=== PATIENT | male | born 1990 | race Caucasian/White ===

== ENCOUNTER → 2020-05-22 08:14 | Outpatient (BNVA) | payer SELFPAY | PROVIDERS: PCP Family Medicine; Visit Provider Counselor Mental Health | DX: Z01.89 Encounter for other specified special examinations (principal) | CPT/HCPCS: 87491; 87591; 87661 ==

== ENCOUNTER → 2021-05-09 10:03 | Outpatient (BNVA) | payer OTHER, SELFPAY | PROVIDERS: PCP Family Medicine; Visit Provider Nurse Practitioner Psychiatric/Mental Health | DX: Z03.89 Encounter for observation for other suspected diseases and conditions ruled out (principal) | CPT/HCPCS: 80053; 80061; 83036 ==

== ENCOUNTER → 2021-12-18 09:24 | Outpatient (BNVA) | payer MEDICAID, SELFPAY | PROVIDERS: Family Provider Family Medicine; PCP Family Medicine; Visit Provider Nurse Practitioner Psychiatric/Mental Health | DX: F41.1 Generalized anxiety disorder (principal); Z79.899 Other long term (current) drug therapy | CPT/HCPCS: 80061; 83036 ==

== ENCOUNTER → 2022-01-28 14:01 | Outpatient (BNVA) | payer MEDICAID, SELFPAY ==
[2022-01-01 09:32] VITALS: BP 135/92; BMI 69.6
== END ==
PROVIDERS: Family Provider Family Medicine; Visit Provider Family Medicine
DX: F33.1 Major depressive disorder, recurrent, moderate (principal); F41.1 Generalized anxiety disorder; E66.9 Obesity, unspecified; I10 Essential (primary) hypertension; E78.2 Mixed hyperlipidemia; R73.03 Prediabetes
CPT/HCPCS: 80053; 84443; 85025

== ENCOUNTER → 2022-10-27 14:12 | Outpatient (BNVA) | payer OTHER, SELFPAY ==
[2022-10-07 07:19] VITALS: BP 135/92; BMI 69.6
== END ==
PROVIDERS: Family Provider Family Medicine; PCP Family Medicine; Visit Provider Psychiatry & Neurology Neurology
DX: Z79.899 Other long term (current) drug therapy (principal)
CPT/HCPCS: 80053; 80061; 83036

== ENCOUNTER → 2023-01-23 13:55 | Outpatient (BNVA) | payer MEDICAID, SELFPAY ==
[2022-12-31 15:18] VITALS: BP 150/88; BMI 70.7
== END ==
PROVIDERS: Family Provider Family Medicine; PCP Family Medicine; Visit Provider Registered Nurse Neonatal Intensive Care
DX: R05.9 Cough, unspecified (principal); Z20.822 Contact with and (suspected) exposure to COVID-19
CPT/HCPCS: 87426

== ENCOUNTER 2023-07-18 21:42 | Emergency (ER) | payer MEDICAID, SELFPAY ==
[2023-07-14 08:05] VITALS: BP 150/88; BMI 70.7
[2023-07-18 22:09] VITALS: BP 162/109; PULSE 79; RESP 20; TEMP 36.8; O2SAT 97; BMI 68.3
--- NOTE | 2023-07-18 23:48 | ED_ITS ---
HPI - Dental/Oral General: Chief complaint: Dental/Oral Stated complaint: Mouth/Oral pain Time Seen by Provider: 07/18/23 23:40 History of Present Illness: 33-year-old male patient comes in with f rontal incisor dental pain. Patient has no obvious swelling noted. Patient does have dental caries noted. 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 Social phobia Family History Other CAD (coronary artery disease) Hypertension Psychiatric illness Social History (Updated 12/08/22 @ 11:05 by Ai Garcia LPN) Smoking and tobacco/nicotine status: never used tobacco/nicotine Second hand smoke exposure: No Alcohol intake: never Substance/Drug Use: never Adopted: No Caregiver/support person: No Lives independently: Yes Household members: significant other Housing: Apartment Marital status: Life Partner Number of children: 0 Number of grandchildren: 0 Highest education level completed: Some College, No Degree service: No Current occupational status: disabled Current occupational exposures/hazards: No Pets and animals: Yes Pets & animals: cat(s) Leisure activites: art, games and other Leisure activities details: Watch U- tube, drawing, pokemon, playing with cats Sexually active: Yes Do you think of yourself as: Straight/Heterosexual Current gender identity: Male Margie/Buddhism: Uatsdin Special margie needs: No Agree to transfusion: Yes Physical Exam Const: COMMON NORMALS: alert HENMT: COMMON NORMALS: normocephalic HEAD & SCALP: normocephalic TEETH & GINGIVA: Yes other (Multiple dental caries fair dentition) Neck/C-Spine: COMMON NORMALS: full ROM Resp: COMMON NORMALS: normal respiratory effort Cardio: COMMON NORMALS: regular rate RATE: regular rate Extremity: COMMON NORMALS: normal to inspection Neuro: SENSORIUM/ORIENTATION: Yes alert Skin: COMMON NORMALS: turgor normal GENERAL SKIN EXAM: turgor normal Course Vital Signs: Vital signs: Vital Signs Temperature 98.3 F 07/18/23 22:09 Pulse Rate 79 07/18/23 22:09 Respiratory Rate 20 H 07/18/23 22:09 Blood Pressure 162/109 07/18/23 22:09 Pulse Oximetry 97 07/18/23 22:09 Oxygen Delivery Me thod Room Air 07/18/23 22:09 MDM - Dental/Oral Medical Decision Making 33-year-old male patient comes in today for complaints of dental pain. On exam patient has multiple dental caries but with no signs of severe gingival erythema or swelling. Patient does have dental tenderness to the right frontal incisor. Patient has decay to the tooth. Differential diagnosis includes but not limited to dental abscess, dental caries, dental pain. Will start patient on antibiotics and give him some hydrocodone to help with his pain. Patient was recommended to follow-up with primary care and primary dentist for definitive care. Patient reported understanding and agreed to plan. No radiology studies performed this visit Discharge Plan Discharge Patient Disposition: Home Clinical Impression: Dental abscess Condition: Stable Prescriptions: New amoxicillin-pot clavulanate 875-125 mg tablet 1 tab PO Q8H Qty: 21 0RF hydrocodone-acetaminophen 5-325 mg tablet 1 tab PO Q8H PRN (Reason: pain (scale score 7-10)) Qty: 7 0RF No Action ibuprofen 200 mg tablet 400 mg PO Q6H PRN cetirizine [Zyrtec] 10 mg tablet 10 mg PO DAILY lisinopril 10 mg tablet 10 mg PO DAILY Qty: 90 2RF hydroxyzine pamoate [Vistaril] 25 mg capsule 25 mg PO BID PRN (Reason: anxiety) Qty: 180 1RF Rx Instructions: Take one capsule twice per day as needed for anxiety propranolol 10 mg tablet 10 mg PO TID Qty: 270 1RF Rx Instructions: Take one tablet three times per day citalopram [Celexa] 40 mg tablet 40 mg PO .morning Qty: 90 2RF Rx Instructions: Take one tablet every morning aripiprazole [Abilify] 2 mg tablet 2 mg PO .bedtime Qty: 90 2RF Rx Instructions: Take one tablet at bedtime Discharge Orders: Discharge ED (Routine); Ordered 07/18/23 Ordered By: Ha Wiggins Referrals: Vinny Padron DO [Primary Care Provider] - Spencer Forman MD [Family Provider] - Patient Instructions: Opioid Safety, Pain Management Coding Level of Care Code ED Horticulture Professor for Yury Uribe
[2023-07-19] MEDS: HYDROcodone-acetaminophen 7.5-325 mg Tablet 1 TAB PO
[2023-07-19] MEDS: amoxicillin-clav 875-125 mg Tablet 1 TAB PO
== END 2023-07-19 00:01 | disposition home or self-care (01) ==
PROVIDERS: Emergency Provider Nurse Practitioner Family; Family Provider Family Medicine; PCP Family Medicine
DX: K04.7 Periapical abscess without sinus (principal)
CPT/HCPCS: 99283

== ENCOUNTER → 2023-10-26 10:05 | Outpatient (BNVA) | payer OTHER, SELFPAY ==
[2023-10-21 08:04] VITALS: BP 150/88; BMI 70.7
== END ==
PROVIDERS: Family Provider Family Medicine; PCP Family Medicine; Visit Provider Nurse Practitioner Psychiatric/Mental Health
DX: Z79.899 Other long term (current) drug therapy (principal); Z63.4 Disappearance and death of family member; F33.1 Major depressive disorder, recurrent, moderate; F60.1 Schizoid personality disorder; F60.5 Obsessive-compulsive personality disorder; F41.1 Generalized anxiety disorder; F40.10 Social phobia, unspecified
CPT/HCPCS: 80053; 80061; 83036

== ENCOUNTER 2024-02-09 20:00 | Outpatient (CLI) | payer OTHER, SELFPAY ==
[2023-10-27 12:17] VITALS: BP 150/88; BMI 70.7
[2023-11-17 10:41] VITALS: BP 122/76; BMI 74.5
== END 2024-02-09 20:01 | disposition home or self-care (01) ==
LOC: SLEEP 23:48
PROVIDERS: Family Provider Family Medicine; PCP Family Medicine; Visit Provider Family Medicine
DX: G47.33 Obstructive sleep apnea (adult) (pediatric) (principal); Z99.89 Dependence on other enabling machines and devices
CPT/HCPCS: 95810

== ENCOUNTER 2024-05-21 15:26 | Emergency (ER) | payer MEDICAID, SELFPAY ==
[2024-04-10 09:44] VITALS: BP 122/76; BMI 74.5
[2024-05-21 15:27] VITALS: BP 157/97; PULSE 90; RESP 26; TEMP 36.7; O2SAT 94; BMI 79.1
--- NOTE | 2024-05-21 15:38 | USR_ITS ---
PROCEDURE INFORMATION: Exam: US Duplex Right Lower Extremity Veins, Limited Exam date and time: 05/21/2024 4:09 PM Age: 34 years old Clinical indication: Pain; Leg, lower; Right; Additional info: Leg pain TECHNIQUE: Imaging protocol: Real-time duplex ultrasound of the right extremity with 2-D jernigan scale, color Doppler flow and spectral waveform analysis including responses to compression and other maneuvers (when performed) with image documentation. Limited exam was focused on the right lower extremity veins. COMPARISON: No relevant prior studies available. FINDINGS: Right deep veins: Unremarkable. The common femoral, femoral, proximal profunda femoral and popliteal veins are patent without thrombus. Normal Doppler waveforms. Normal compressibility and/or augmentation response. Superficial veins: Greater saphenous vein at the saphenofemoral junction is patent without thrombus. Soft tissues: Unremarkable. US/[place] [id number] IMPRESSION: No evidence of deep vein thrombosis.
[2024-05-21 15:45] VITALS: BP 144/83; PULSE 88; RESP 18; O2SAT 97
--- NOTE | 2024-05-21 15:49 | W.ED.EXTPRO ---
HPI - Extremity Problem General: Chief complaint: Extremity Problem,Nontraumatic Stated complaint: rt leg pain Time Seen by Provider: 05/21/24 15:29 Source: patient Mode of arrival: ambulatory Limitations: no limitations History of Present Illness: 34-year-old male states he has been having right leg pain for about a week. States it has been a sharp pain in his right leg states its much worse with walking sent here to rule out a blood clot denies any fever denies any rash. Associated symptoms: Deny chest pain, fever(s) or rash Related Data Home Medications Medication Instructions Recorded Confirmed ibuprofen 200 mg tablet 400 mg PO Q6H PRN Pain 07/03/19 05/21/24 cetirizine 10 mg tablet 10 mg PO DAILY 05/21/24 05/21/24 famotidine 20 mg tablet 20 mg PO DAILY 05/21/24 05/21/24 lisinopril 10 mg tablet 10 mg PO DAILY 05/21/24 05/21/24 Previous Rx's Medication Instructions Recorded aripiprazole 2 mg tablet (Abilify) 2 mg PO .bedtime #90 tabs 10/26/23 citalopram 40 mg tablet (Celexa) 40 mg PO .morning #90 tabs 10/26/23 hydroxyzine pamoate 25 mg capsule 25 mg PO BID PRN anxiety #180 caps 10/26/23 (Vistaril) propranolol 10 mg tablet 10 mg PO TID #270 tabs 10/26/23 metformin 500 mg tablet 500 mg PO BIDWMEAL #60 tabs 12/21/23 pravastatin 10 mg tablet 10 mg PO DAILY #30 tabs 12/21/23 Allergies Allergy/AdvReac Type Severity Reaction Status Date / Time No Known Allergies Allergy Verified 05/21/24 15:32 Review of Systems Const: Denies: fever(s), chills, body aches or change in appetite ENMT: Denies: throat pain or dental pain Card: Denies: chest pain Resp: Denies: dyspnea GI: Denies: abdominal pain, nausea, vomiting or diarrhea Musc: Reports: extremity pain; Denies: neck pain or back pain Skin/Breast: Denies: rash Neuro: Denies: headache(s) PFSH ED PFSH: Medical History Bereavement Sudden loss of mother 09/05/21 Major depressive disorder, recurrent episode, moderate with anxious distress Schizoid personality disorder Generalized anxiety disorder Social phobia Obsessive-compulsive personality disorder Family History Other CAD (coronary artery disease) Hypertension Psychiatric illness Social History Smoking and tobacco/nicotine status: never used tobacco/nicotine Second hand smoke exposure: No Alcohol intake: never Substance/Drug Use: never Adopted: No Caregiver/support person: No Lives independently: Yes Household members: significant other Housing: Apartment Marital status: Life Partner Number of children: 0 Number of grandchildren: 0 Highest education level completed: Some College, No Degree service: No Current occupational status: disabled Current occupational exposures/hazards: No Pets and animals: Yes (3 indoor cats) Pets & animals: cat(s) Leisure activites: art, games and other Leisure activities details: Watch U-tube, drawing, pokemon, playing with cats Sexually active: Yes How many partners: 1 Are you practicing safe sex: No Do you think of yourself as: Straight/Heterosexual Current gender identity: Male Margie/Druze: Lutheran Special margie needs: No Agree to transfusion: Yes Physical Exam Const: COMMON NORMALS: no acute distress, patient oriented x3 and healthy appearing HENMT: COMMON NORMALS: normocephalic and atraumatic HEAD & SCALP: normocephalic and atraumatic Eye: COMMON NORMALS: conjunctivae normal CONJUNCTIVA: Yes conjunctivae normal Neck/C-Spine: COMMON NORMALS: full ROM and supple Chest: COMMONS NORMALS: normal inspection of the chest Resp: COMMON NORMALS: normal respiratory effort Cardio: COMMON NORMALS: regular rate RATE: regular rate Extremity: COMMON NORMALS: normal to inspection and full ROM NARRATIVE EXTREMITY EXAM: Tenderness noted along right leg no obvious deformities no swelling distal pulses intact Neuro: COMMON NORMALS: patient oriented x3, moves all extremities and no focal motor deficits Psych: COMMON NORMALS: mental status grossly normal, Normal thought process present and cooperative THOUGHT PROCESS: Normal thought process present Skin: COMMON NORMALS: no rashes or lesions noted and no wounds GENERAL SKIN EXAM: no rashes or lesions noted Course Vital Signs: Vital signs: Vital Signs Temperature 98.1 F 05/21/24 15:27 Pulse Rate 88 05/21/24 15:45 Respiratory Rate 18 05/21/24 15:45 Blood Pressure 144/83 05/21/24 15:45 Pulse Oximetry 97 05/21/24 15:45 Oxygen Delivery Me thod Room Air 05/21/24 15:27 MDM - Extremity (Nontraumatic) Medical Decision Making Patient presents here with right leg pain likely muscular in nature exam is benign ultrasound showed no DVT stable for discharge follow-up with PCP return if worsening. Medical Records I reviewed the patient's medical records. All radiology interpretation(s) finalized by discharge Discharge Plan Discharge Patient Disposition: Home Clinical Impression: Pain in right leg Condition: Stable Prescriptions: No Action ibuprofen 200 mg tablet 400 mg PO Q6H PRN (Reason: Pain) metformin 500 mg tablet 500 mg PO BIDWMEAL Qty: 60 5RF pravastatin 10 mg tablet 10 mg PO DAILY Qty: 30 5RF aripiprazole [Abilify] 2 mg tablet 2 mg PO .bedtime Qty: 90 2RF Rx Instructions: Take one tablet at bedtime citalopram [Celexa] 40 mg tablet 40 mg PO .morning Qty: 90 2RF Rx Instructions: Take one tablet every morning hydroxyzine pamoate [Vistaril] 25 mg capsule 25 mg PO BID PRN (Reason: anxiety) Qty: 180 1RF Rx Instructions: Take one capsule twice per day as needed for anxiety propranolol 10 mg tablet 10 mg PO TID Qty: 270 2RF Rx Instructions: Take one tablet three times per day cetirizine 10 mg tablet 10 mg PO DAILY famotidine 20 mg tablet 20 mg PO DAILY Rx Instructions: take ONE tablet BY MOUTH daily lisinopril 10 mg tablet 10 mg PO DAILY Rx Instructions: TAKE 1 TABLET BY MOUTH EVERY DAY Discharge Orders: Discharge ED (Routine); Ordered 05/21/24 Ordered By: Brenda Linda Referrals: Vinny Padron DO [Primary Care Provider] - Spencer Forman MD [Family Provider] - Discharge Diet: Advance as tolerated Discharge Activity: Resume usual activity Patient Instructions: Leg Pain (ED) Coding Level of Care Code ED Sports Management Internship for Yury Uribe
[2024-05-21 16:32] VITALS: BP 141/79; PULSE 89; RESP 18; O2SAT 99
== END 2024-05-21 16:33 | disposition home or self-care (01) ==
PROVIDERS: Emergency Provider Emergency Medicine; Family Provider Family Medicine; PCP Family Medicine
DX: M79.604 Pain in right leg (principal); Z79.84 Long term (current) use of oral hypoglycemic drugs
CPT/HCPCS: 93971; 99284

== ENCOUNTER → 2024-06-29 14:02 | Outpatient (BNVA) | payer MEDICAID, SELFPAY ==
[2024-04-10 09:44] VITALS: BP 122/76; BMI 74.5
== END ==
PROVIDERS: Family Provider Family Medicine; PCP Family Medicine; Visit Provider Family Medicine
DX: E11.9 Type 2 diabetes mellitus without complications (principal)
CPT/HCPCS: 80053; 83036

== ENCOUNTER 2024-10-05 20:00 | Outpatient (CLI) | payer MEDICAID, SELFPAY ==
[2024-04-10 09:44] VITALS: BP 122/76; BMI 74.5
== END 2024-10-05 20:01 | disposition home or self-care (01) ==
LOC: SLEEP 23:33
PROVIDERS: PCP Family Medicine; Visit Provider Family Medicine
DX: G47.33 Obstructive sleep apnea (adult) (pediatric) (principal)
CPT/HCPCS: 95811

== ENCOUNTER → 2024-12-12 10:23 | Outpatient (BNVA) | payer OTHER, SELFPAY ==
[2024-04-10 09:44] VITALS: BP 122/76; BMI 74.5
== END ==
PROVIDERS: PCP Family Medicine; Visit Provider Nurse Practitioner Psychiatric/Mental Health
DX: F41.1 Generalized anxiety disorder (principal); F33.1 Major depressive disorder, recurrent, moderate; Z79.899 Other long term (current) drug therapy
CPT/HCPCS: 80061; 83036

== ENCOUNTER → 2025-04-27 11:28 | Outpatient (BNVA) | payer MEDICAID, SELFPAY ==
[2025-01-01 14:19] VITALS: BP 135/89; BMI 78.3
== END ==
PROVIDERS: PCP Family Medicine; Visit Provider Family Medicine
DX: R73.03 Prediabetes (principal)
CPT/HCPCS: 80053; 83036; 85025

== ENCOUNTER 2025-05-18 21:25 | Emergency (ER) | payer MEDICAID, SELFPAY ==
[2025-01-01 14:19] VITALS: BP 135/89; BMI 78.3
[2025-05-18 21:40] VITALS: BP 136/90; PULSE 85; RESP 16; TEMP 36.8; O2SAT 98; BMI 75.2
--- NOTE | 2025-05-18 22:13 | ED_ITS ---
HPI - Abdominal Pain 2 General: Chief Complaint: Abdominal Pain Stated Complaint: V/N,abd pain,diarrhea Time Seen by Provider: 05/18/25 21:32 History of Present Illness: 35-year-old male presents emergency room complaining of abdominal discomfort and what he describes as stomach issues for the last several days. He had some vomiting and diarrhea with it. He denies any hematochezia melena hematemesis coffee-ground emesis denies dysuria urgency or frequency at times whenever he eats it makes him throw up other times he has no symptoms at all he has several episodes of the eructations recently. Patient is diabetic he is on a GLP-1 as well as on metformin. Associated Symptoms: Reports nausea and vomiting; Denies chills, dysuria and fever(s) Related Data Home Medications ?Medication ?Instructions ?Recorded ?Confirmed ibuprofen 200 mg tablet 400 mg PO Q6H PRN Pain 07/0305/04/25 Previous Rx's ?Medication ?Instructions ?Recorded pravastatin 10 mg tablet 10 mg PO DAILY #90 tabs 11/15 aripiprazole 2 mg tablet (Abilify) 2 mg PO .3 pm #90 t abs 09/28/24 BIPAP 22-18 cm mmHg setting with #1 ea 10/11/24 mask, tubing and supplies cetirizine 10 mg tablet 10 mg PO DAILY #90 tabs 10/22 11/15 famotidine 20 mg tablet 20 mg PO DAILY #90 tabs 11/22 07/18 citalopram 40 mg tablet (Celexa) 40 mg PO .morning #90 tabs 12/27/24 propranolol 10 mg tablet 10 mg PO TID #270 tabs 12/27 lisinopril 20 mg tablet 20 mg PO DAILY #90 tabs 12/22 01/15 metformin 500 mg tablet See Rx Instructions .Route 0 01/26/25 .COMPLEX #60 tabs ketoconazole 1 % shampoo 1 applic topical Q3D #200 mL 03/23/25 semaglutide 1 mg/dose (4 mg/3 mL) 1 mg (0.75 mL) SUBCU T .qweekly 3 04/27/25 subcutaneous pen injector months #3 mL hydroxyzine pamoate 25 mg capsule 25 mg PO BID PRN anx iety #60 caps 05/04/25 (Vistaril) Allergies Allergy/AdvReac Type Severity Reaction Status Date / Time No Known Allergies Allergy Verified 05/18/25 21:45 Review of Systems 2 Const: Denies: fever(s) or chills Card: Denies: chest pain Resp: Denies: dyspnea GI: Reports: abdominal pain, nausea and vomiting : Denies: dysuria, urinary frequency or urinary urgency Musc: Denies: neck pain or back pain Skin/Breast: Denies: rash PFSH ED 2 PFSH: Medical History GUMARO (obstructive sleep apnea) Essential hypertension Mixed dyslipidemia GERD without esophagitis BMI 70 and over, adult Bereavement Sudden loss of mother 09/05/21 Major depressive disorder, recurrent episode, moderate with anxious distress Schizoid personality disorder Generalized anxiety disorder Social phobia Obsessive-compulsive personality disorder Surgical History History of appendectomy Family History Other CAD (coronary artery disease) Hypertension Psychiatric illness Social History Smoking and tobacco/nicotine status: never used tobacco/nicotine Second hand smoke exposure: No Alcohol intake: never Substance/Drug Use: never Adopted: No Caregiver/support person: No Lives independently: No (Lives with partner) Household members: significant other Housing: Apartment Marital status: Life Partner Number of children: 0 Number of grandchildren: 0 Highest education level completed: Some College, No Degree service: No Current occupational status: employed and disabled Current occupation: [employer] Current occupational exposures/hazards: No Pets and animals: Yes (3 indoor cats) Pets & animals: cat(s) Leisure activites: art, games, fishing and other Leisure activities details: Watch U-tube, drawing, pokemon, playing with cats Sexually active: No Do you think of yourself as: Straight/Heterosexual Current gender identity: Male Margie/Baptism: Mu-Ism Special margie needs: No Agree to transfusion: Yes Physical Exam 2 Const: COMMON NORMALS: no acute distress GENERAL APPEARANCE: cooperative and comfortable ORIENTATION/CONSCIOUSNESS: Yes awake, Yes oriented to person, Yes oriented to place and Yes oriented to time HENMT: COMMON NORMALS: normocephalic, atraumatic and hearing grossly normal bilaterally HEAD & SCALP: normocephalic and atraumatic Resp: COMMON NORMALS: normal respiratory effort, No retractions, No use of accessory muscles and clear to auscultation bilaterally AUSCULTATION: clear to auscultation bilaterally Cardio: COMMON NORMALS: regular rate, regular rhythm and No murmurs present (Cardio) RATE: regular rate RHYTHM: regular rhythm GI: COMMON NORMALS: Soft to palpation and No hepatosplenomegaly present A USCULTATION: Yes normoactive bowel sounds PALPATION: Yes Soft to palpation, No Tenderness to palpation present (GI), No Guarding due to palpation present (GI) and Yes No hepatosplenomegaly present Extremity: COMMON NORMALS: normal to inspection, capillary refill normal, no clubbing, cyanosis or edema, no calf tenderness and no pedal edema Neuro: SENSORIUM/ORIENTATION: Yes oriented to person, Yes oriented to place and Yes oriented to time Skin: COMMON NORMALS: no rashes or lesions noted GENERAL SKIN EXAM: no rashes or lesions noted Course 2 Vital Signs: Vital signs: Vital Signs Temperature 98.2 F 05/18/25 21:40 Pulse Rate 96 05/19/25 01:03 Respiratory Rate 16 05/18/25 21:40 Blood Pressure 167/118 05/19/25 01:03 Pulse Oximetry 98 05/19/25 01:03 Oxygen Delivery Me thod Room Air 05/19/25 00:44 MDM - Abdominal Pain Medical Decision Making Medical decision making Social determinants: None I reviewed the patient's medical record. I reviewed the patient's current home meds. Alternate historians: None Differential diagnosis: Gastric ulcer, gastroparesis, bowel obstruction acute cholecystitis Lab Review: No leukocytosis hemoglobin stable. Chemistry showed normal electrolytes normal anion gap BUN and creatinine are also normal.Mild elevation of AST and ALT but this has been chronic and is actually trending better. Bilirubin normal Imaging: None Assessment of risk Level of risk: Low Hospitalization considerations: No indication for hospitalization Reexamination: Stable Assessment and plan: Patient has generalized abdominal discomfort at various times he will notice it when he eats he gets sick and throws up he feels bloated. He does not really get any biliary colic like symptoms. His bilirubin has been elevated in the past so actually try to eat better today suspect he had gastroparesis he is on metformin and Ozempic. Either of these things could cause stomach upset. Recommend that he hold these follow-up with his primary care doctor he may benefit from gastric emptying study and/or EGD these can be done as an outpatient. Return if he has further problems. Lab Data 05/18/25 22:41 05/18/25 22:41 Labs/Radiology: Laboratory Results WBC 8.23 10^3/uL (3.29-11.43) 05/18/25 22:41 RBC 4.85 10^6/uL (3.85-5.65) 05/18/25 22:41 Hgb 13.60 g/dL (11.27-16.99) 05/18/25 22:41 Hct 43.3 % (37-53) 05/18/25 22:41 MCV 89.3 fl (82-101) 05/18/25 22:41 MCH 28.0 pg (27-33) 05/18/25 22:41 MCHC 31.4 g/dL (30-55) 05/18/25 22:41 RDW 14.6 % (12.1-15.1) 05/18/25 22:41 Plt Count 235 10^3/cmm (157-399) 05/18/25 22:41 MPV 11.3 fL (7.4-10.4) H 05/18/25 22:41 Neut % (Auto) 46.1 % 05/18/25 22:41 Lymph % (Auto) 39.1 % 05/18/25 22:41 [place] % (Auto) 7.2 % 05/18/25 22:41 Eos % (Auto) 6.7 % 05/18/25 22:41 Baso % (Auto) 0.4 % 05/18/25 22:41 Neut # (Auto) 3.80 10^3/uL (1.8-7.7) 05/18/25 22:41 Lymph # (Auto) 3.2 10^3/uL (0.8-4.8) 05/18/25 22:41 [place] # (Auto) 0.6 10^3/uL (0.2-0.9) 05/18/25 22:41 Eos # (Auto) 0.6 10^3/uL (0.0-0.8) 05/18/25 22:41 Baso # (Auto) 0.0 10^3/uL (0.0-0.1) 05/18/25 22:41 Nucleated RBC % (auto) 0 % 05/18/25 22:41 Nucleated RBCs # 0.0 /100WBC 05/18/25 22:41 Sodium 138 mmol/L (136-145) 05/18/25 22:41 Potassium 4.2 mmol/L (3.5-5.1) 05/18/25 22:41 Chloride 100 mmol/L (98-107) 05/18/25 22:41 Carbon Dioxide 27 mmol/L (22-29) 05/18/25 22:41 Anion Gap 15.2 (5-19) 05/18/25 22:41 BUN 16 mg/dL (6-20) 05/18/25 22:41 Creatinine 1.0 mg/dL (0.7-1.2) 05/18/25 22:41 GFR Calculation 86.1 mL/min (90-130) L 05/18/25 22:41 Glucose 139 mg/dL (65-115) H 05/18/25 22:41 Calculated Osmolality 289 mOsm/kg (285-295) 05/18/25 22:41 Calcium 9.1 mg/dL (8.5-10.5) 05/18/25 22:41 Total Bilirubin 0.4 mg/dL (0.15-1.2) 05/18/25 22:41 AST 33 U/L (0-40) 05/18/25 22:41 ALT 54 U/L (0-41) H 05/18/25 22:41 Alkaline Phosphatase 38 U/L (40-130) L 05/18/25 22:41 Total Protein 7.5 g/dL (6.6-8.7) 05/18/25 22:41 Albumin 4.3 g/dL (3.5-5.2) 05/18/25 22:41 Globulin 3.2 g/dL (1.3-4.6) 05/18/25 22:41 Lipase 57 U/L (13-60) 05/18/25 22:41 Urine Color Yellow (Yellow) 05/18/25 22:13 Urine Appearance Clear (CLEAR) 05/18/25 22:13 Urine pH 5.5 (5-7) 05/18/25 22:13 Ur Specific [place] 1.026 (1.005-1.030) 05/18/25 22:13 Urine Protein Trace (Negative) A 05/18/25 22:13 Urine Glucose (UA) Negative (Normal) 05/18/25 22:13 Urine Ketones Trace (Negative) 05/18/25 22:13 Urine Blood Negative (Negative) 05/18/25 22:13 Urine Nitrate Negative (Negative) 05/18/25 22:13 Urine Bilirubin Negative (Negative) 05/18/25 22:13 Urine Urobilinogen 1.0 mg/dL (Negative) 05/18/25 22:13 Ur Leukocyte Esterase Negative (Negative) 05/18/25 22:13 Urine RBC 0-2 /hpf (0-2) 05/18/25 22:13 Urine WBC 0-5 /hpf (0-5) 05/18/25 22:13 Ur Squamous Epith Cells 0-5 /hpf (0-5) 05/18/25 22:13 Amorphous Sediment Not Reportable 05/18/25 22:13 Urine Bacteria None seen /hpf (NONE) 05/18/25 22:13 Hyaline Casts 2.05 /lpf 05/18/25 22:13 No radiology studies performed this visit Discharge Plan Discharge Patient Disposition: Home Clinical Impression: Gastroparesis, Medication side effects Condition: Stable Prescriptions: No Action ibuprofen 200 mg tablet 400 mg PO Q6H PRN (Reason: Pain) pravastatin 10 mg tablet 10 mg PO DAILY Qty: 90 1RF aripiprazole [Abilify] 2 mg tablet 2 mg PO .3 pm Qty: 90 2RF Rx Instructions: Take one tablet at 3 pm citalopram [Celexa] 40 mg tablet 40 mg PO .morning Qty: 90 2RF Rx Instructions: Take one tablet every morning propranolol 10 mg tablet 10 mg PO TID Qty: 270 2RF Rx Instructions: Take one tablet three times per day ketoconazole 1 % shampoo 1 applic topical Q3D Qty: 200 2RF hydroxyzine pamoate [Vistaril] 25 mg capsule 25 mg PO BID PRN (Reason: anxiety) Qty: 60 3RF Rx Instructions: May take one capsule twice per day as needed for anxiety semaglutide 1 mg/dose (4 mg/3 mL) pen injector 1 mg SUBCUT .qweekly 90 Days Qty: 3 3RF Rx Instructions: 0.5mg x 4 weeks (DME) BIPAP 22-18 cm mmHg setting with mask, tubing and supplies See Rx Instructions .ROUTE .MEDSUPPLY Qty: 1 0RF Rx Instructions: As directed cetirizine 10 mg tablet 10 mg PO DAILY Qty: 90 1RF famotidine 20 mg tablet 20 mg PO DAILY Qty: 90 1RF lisinopril 20 mg tablet 20 mg PO DAILY Qty: 90 1RF metformin 500 mg tablet See Rx Instructions .ROUTE .COMPLEX Qty: 60 5RF Dose Instruction: TAKE 1 TABLET BY MOUTH TWICE DAILY with meals Rx Instructions: TAKE 1 TABLET BY MOUTH TWICE DAILY with meals Discharge Orders: Discharge ED (Routine); Ordered 05/18/25 Ordered By: Amandeep Carrillo Referrals: John Hansen MD [Primary Care Provider, Family Practice] Patient Instructions: Abdominal Pain (ED), Opioid Safety, Pain Management, Patient Portal & Quinn Instructions Activity Restrictions/Additional Instructions: Thank you for choosing [facility] for your healthcare needs today. It is very important that you follow up as instructed or that you return to the Emergency Department should you have concerns or if your condition changes or worsens in any way. Emergency department visits are focused on emergent conditions, in some cases you may require further evaluation on an outpatient basis. You were seen in the emergency room with complaint of ongoing stomach issues. Based on your description of your symptoms your lab work and review of your medication list believe you are having gastroparesis. Suspect this may have been a mild underlying condition made worse by the current medications you are on including the semaglutide and metformin. Recommend that you follow-up with your primary care doctor regarding these medications may be good to hold these medications until you are able to see them. (Please note that included in your discharge packet is information concerning opioid safety and pain management. This information is given to all patients were discharged from the ER regardless of their discharge diagnosis or the medicines they usually take or are prescribed.) Print Language: Tajik Coding Level of Care Code ED Antique Finisher for Yury Uribe
[2025-05-18 22:24] LABS: Glucose Urine UA Negative (Normal); Nitrate Urine Negative (Negative); Specific Gravity, Urine 1.026 (1.005-1.030)
[2025-05-18 22:29] LABS: Add Urine Microscopic? YES
[2025-05-18 22:51] LABS: Hematocrit 43.3 % (37-53); Hemoglobin 13.60 g/dL (11.27-16.99); Mean Corpuscular HGB Conc 31.4 g/dL (30-55); Mean Corpuscular Hemoglobin 28.0 pg (27-33); Mean Corpuscular Volume 89.3 fl (82-101); Nucleated Red Blood Cells % 0 %; Platelet Count 235 10^3/cmm (157-399); Red Blood Count 4.85 10^6/uL (3.85-5.65); White Blood Count 8.23 10^3/uL (3.29-11.43)
[2025-05-18 23:11] LABS: Alanine Aminotransferase 54 U/L (0-41); Albumin Level 4.3 g/dL (3.5-5.2); Alkaline Phosphatase 38 U/L (40-130); Aspartate Amino Transferase 33 U/L (0-40); Blood Urea Nitrogen 16 mg/dL (6-20); Calcium 9.1 mg/dL (8.5-10.5); Carbon Dioxide 27 mmol/L (22-29); Chloride 100 mmol/L (98-107); Creatinine Clr Calc Pharmacy 148.4601; Globulin 3.2 g/dL (1.3-4.6); Glucose 139 mg/dL (65-115); Lipase 57 U/L (13-60); Osmolality Calculated 289 mOsm/kg (285-295); Sodium 138 mmol/L (136-145); Total Protein 7.5 g/dL (6.6-8.7)
[2025-05-18 23:18] LABS: Anion Gap 15.2 (5-19); Potassium 4.2 mmol/L (3.5-5.1)
[2025-05-19] MEDS: metoclopramide 5 mg/mL SDV 2 mL 10 MG IVP (00:35)
[2025-05-19 00:44] VITALS: BP 153/101; PULSE 96; O2SAT 98
[2025-05-19 01:03] VITALS: BP 167/118; PULSE 96; O2SAT 98
== END 2025-05-19 01:05 | disposition home or self-care (01) ==
PROVIDERS: Emergency Provider Family Medicine; PCP Family Medicine
DX: E11.43 Type 2 diabetes mellitus with diabetic autonomic (poly)neuropathy (principal); K31.84 Gastroparesis; T50.905A Adverse effect of unspecified drugs, medicaments and biological substances, initial encounter; X58.XXXA Exposure to other specified factors, initial encounter; Z79.84 Long term (current) use of oral hypoglycemic drugs; I10 Essential (primary) hypertension; E78.2 Mixed hyperlipidemia
CPT/HCPCS: 80053; 81001; 83690; 85025; 96374; 99284; J2765